=== PATIENT | female | born 1980 | race Caucasian/White ===

== ENCOUNTER 2021-12-15 16:00 | Outpatient (CLI) | payer OTHER, SELFPAY ==
--- NOTE | ~2021-12-15 | US_ITS ---
EXAMINATION: US venous doppler [facility] DATE: 12/15/2021 16:48 INDICATION: Lower limb pain. TECHNIQUE: Grayscale ultrasound images without and with compression and Doppler ultrasound images of the bilateral lower extremity veins were obtained. COMPARISON: None. FINDINGS: The visualized portions of right common femoral vein, profunda (deep) femoral vein, femoral vein, pop liteal vein, peroneal veins, posterior tibial veins, and greater saphenous vein outflow are patent. The visualized portions of left common femoral vein, profunda femoral vein, femoral vein, popliteal v ein, peroneal veins, posterior tibial veins, and greater saphenous vein outflow are patent. IMPRESSION: 1. No deep venous thrombosis. Reviewed, dictated and finalized at location A.
== END 2021-12-15 16:01 | disposition home or self-care (01) ==
LOC: ANHIMG 16:05
PROVIDERS: PCP Internal Medicine
DX: M79.661 Pain in right lower leg (principal); M79.662 Pain in left lower leg
CPT/HCPCS: 93970

== ENCOUNTER → 2022-12-12 15:28 | Outpatient (CLI) | payer OTHER, SELFPAY ==
--- NOTE | ~2022-12-12 | US_ITS ---
Pelvic ultrasound. Clinical History: Pelvic pain Technique: Realtime transabdominal and transvaginal scanning of the pelvis was performed. Color flow Doppler and Doppler spectral analysis were performed. Findings: The uterus is anteverted. The endometrial stripe has a thickness of 6 mm. No focal mass is identified. The right ovary measures 2.1 x 4.0 x 1.4 cm. No significant right ovarian or adnexal mass is seen. The left ovary measures 2.4 x 1.6 x 1.7 cm. No significant left ovarian or adnexal mass is seen. Vascular flow present in both ovaries on Doppler spectral analysis. There is trace free fluid in the cul de sac. Impression: Trace free fluid in the pelvis, otherwise unremarkable exam. Reviewed, dictated and finalized at location . Impression: Trace free fluid in the pelvis, otherwise unremarkable exam.
== END ==
PROVIDERS: PCP Physician Assistant Medical; Visit Provider Nurse Practitioner Obstetrics & Gynecology
DX: R10.2 Pelvic and perineal pain (principal)
CPT/HCPCS: 76830; 76856